=== PATIENT | female | born 1955 | race Caucasian/White ===

== ENCOUNTER 2020-04-12 17:43 | Emergency (ER) | payer MEDICARE, SELFPAY ==
[2020-04-12] VITALS (30 sets, daily range): BP systolic 146–260; BP diastolic 61–130; PULSE 73–101; RESP 16–30; O2SAT 40–100; BMI 22.4
--- NOTE | 2020-04-12 17:53 | DI.RAD.S_ITS ---
PROCEDURE: XR CHEST 1V INDICATIONS: Shortness of breath TECHNIQUE: One view of the chest was acquired. COMPARISON: [facility], , CHEST 2 VIEW, 12/29/2014, 15:39. FINDINGS: Surgical changes and devices: None. Lungs and pleura: Diffuse interstitial pulmonary edema. No pleural effusions or pneumothorax. Mediastinum: Mediastinal contours appear normal. Heart size is normal. Bones and chest wall: No suspicious bony lesions. Overlying soft tissues appear unremarkable. IMPRESSION: Volume overload/diffuse interstitial pulmonary edema. Dictated by: Jacinto Chew M.D. on 04/12/2020 at 18:36 Approved by: Jacinto Chew M.D. on 04/12/2020 at 18:37
--- NOTE | 2020-04-12 18:03 | ED_ITS ---
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 She states she was in her usual state of health with no complaints of worsening dyspnea, chest pain, fevers, cough, edema when she all of a sudden became dramatically more short of breath (she attributes that to increased humidity in the house that no other family members noticed) a sense of severe nausea without vomiting with pain radiating through to her shoulder blades briefly and now resolved. On presentation to the emergency room room air sats were at 76% and currently on 100% non-rebreather her sats are in the upper 90s and she is breathing comfortably and able to speak in full sentences. She is not complaining of chest pain or diaphoresis and notes that her dyspnea has resolved. With her chronic dialysis she does get COVID testing regularly last was 2 weeks ago with no known exposures recently. Related Data Home Medications Medication Instructions Recorded Confirmed [YELLOW MUSTARD] 1 #0 09/22/16 Previous Rx's Medication Instructions Recorded cyclobenzaprine 10 mg PO QDAYP PRN #30 tab 02/19/16 lenalidomide [Revlimid] 5 mg PO QDAY #21 cap 06/11/16 Allergies Allergy/AdvReac Type Severity Reaction Status Date / Time No Known Drug Allergies Allergy Verified 04/12/20 17:52 Review of Systems Review of Systems Narrative: Remainder of review of systems including constitutional, ENT, cardiovascular, respiratory, GI, , musculoskeletal, skin, neurologic and psychiatric systems reviewed and are unremarkable except as noted in HPI. Patient History Medical History DNR (do not resuscitate) End-stage renal disease needing dialysis (10/30/14) MULTIPLE MYELOMA NOT HAVING ACHIEVED REMISSION Squamous cell carcinoma of larynx (06/20/13) Exam Narrative Exam Narrative: General: With 100% non-rebreather in place she is in no acute distress. Able to give a complete and coherent history. Well-nourished well- developed HEENT: Moist mucous membranes, normal sclera with reactive pupils, Neck: + JVD, supple Respiratory: Lungs mild wheezing throughout worse in the lower lung ivy bilaterally with minor bilateral crackles and no rhonchi. Full and symmetrical air movement, no retraction and speaking in full sentences Cardiac: Regular rate and rhythm no murmurs no bruits Abdomen: Soft nontender good bowel tones, no flank pain Skin: Warm and dry, no rashes Neurologic: Grossly neurologically intact with no obvious asymmetries or abnormalities Extremities: No trauma, well perfused, fistulas both arms right currently functional with palpable thrill left without a thrill and not currently being used for dialysis Psych: Cooperative, appropriate insight and affect Initial Vital Signs Initial Vital Signs: Vital Signs Pulse Oximetry 77 L 04/12/20 17:44 Course Orders Ordered: ED Orders 04/12/20 17:50 COVID19 Stat 04/12/20 17:53 XR chest 1V Stat EKG-12 Lead Stat 04/12/20 18:00 Complete Blood Count AUTO DIFF Stat Comprehensive Metabolic Panel Stat D Dimer Stat Lactate (Lactic Acid) Stat Lipase Stat NT-proBNP (BNP-Adult 18+) Stat Partial Thromboplastin Time Stat Procalcitonin Stat Prothrombin Time INR Stat Troponin & CK Cardiac Panel Stat 04/12/20 18:06 Urine Microscopic Stat 04/12/20 18:25 Blood Culture Stat 04/12/20 18:33 Arterial Blood Gas Stat BiPAP Ventilatory Support RT PROTOCOL Discontinued Medications Aspirin (Aspirin 81 Mg Chew Tab) 324 mg PO NOW ONE Stop: 04/12/20 18:23 Last Admin: 04/12/20 18:28 Dose: 324 mg Documented by: MARIELA Nitroglycerin (Nitroglycerin) 50 mg in 250 mls @ 1.5 mls/hr IV TITRATE XOCHITL; Protocol Last Titration: 04/12/20 21:13 Dose: 0 mcg/min, 0 mls/hr Documented by: Titration: 04/12/20 20:54 Dose: 15 mcg/min, 4.5 mls/hr Documented by: Titration: 04/12/20 19:27 Dose: 20 mcg/min, 6 mls/hr Documented by: Titration: 04/12/20 19:23 Dose: 15 mcg/min, 4.5 mls/hr Documented by: Titration: 04/12/20 19:16 Dose: 10 mcg/min, 3 mls/hr Documented by: Admin: 04/12/20 18:28 Dose: 5 mcg/min, 1.5 mls/hr Documented by: MARIELA Vital Signs Vital signs: Vital Signs - 8 hr 04/12/20 17:44 04/12/20 17:52 04/12/20 17:55 Pulse Rate 101 H Respiratory Rate Blood Pressure 198/79 H Pulse Oximetry 77 L 74 L 99 04/12/20 17:58 04/12/20 17:59 04/12/20 18:00 Pulse Rate 93 H 93 H 93 H Respiratory Rate 27 H 20 24 Blood Pressure 227/114 H 260/128 H 246/126 H Pulse Oximetry 100 100 100 04/12/20 18:03 04/12/20 18:12 04/12/20 18:30 Pulse Rate 90 91 H 93 H Respiratory Rate 23 24 24 Blood Pressure 253/126 H 253/130 H Pulse Oximetry 100 100 96 04/12/20 18:35 04/12/20 18:38 04/12/20 19:00 Pulse Rate 95 H 93 H 86 Respiratory Rate 25 H 27 H 26 H Blood Pressure 260/127 H 205/109 H Pulse Oximetry 96 94 100 04/12/20 19:01 04/12/20 19:15 04/12/20 19:20 Pulse Rate 85 84 84 Respiratory Rate 19 23 23 Blood Pressure 227/114 H 225/109 H 219/111 H Pulse Oximetry 100 99 100 04/12/20 19:25 04/12/20 19:30 04/12/20 19:35 Pulse Rate 81 78 77 Respiratory Rate 20 18 17 Blood Pressure 212/109 H 204/96 H 184/88 H Pulse Oximetry 99 100 99 04/12/20 19:40 04/12/20 19:45 04/12/20 19:50 Pulse Rate 76 75 76 Respiratory Rate 17 18 19 Blood Pressure 178/90 H 170/87 H 169/87 H Pulse Oximetry 99 99 99 04/12/20 20:00 04/12/20 20:10 04/12/20 20:20 Pulse Rate 75 87 75 Respiratory Rate 17 23 18 Blood Pressure 181/89 H 204/101 H 197/92 H Pulse Oximetry 99 94 100 04/12/20 20:30 04/12/20 20:40 04/12/20 20:50 Pulse Rate 73 75 74 Respiratory Rate 21 17 18 Blood Pressure 178/91 H 146/61 H 148/79 H Pulse Oximetry 100 99 99 04/12/20 21:00 04/12/20 21:10 Pulse Rate 75 79 Respiratory Rate 20 30 H Blood Pressure 176/80 H 179/75 H Pulse Oximetry 98 95 Medical Decision Making Medical Records Medical records reviewed: Yes I reviewed the patient's medical records. Lab Data Lab results reviewed: Yes I reviewed the patient's lab results. Lab results narrative: Troponin is chronically in the 0.08 range ProBNP elevated as would be expected with dialysis patient No recurrent calcium or potassium issues has noticed with recent [facility] admission March 28 and Result diagrams: 04/12/20 18:00 04/12/20 18:00 Labs: Lab Results 04/12/20 04/12/20 04/12/20 Range/Units 17:50 18:00 18:00 WBC (4.5-11.0) X10^3/uL RBC (4.0-5.2) X10^6/uL Hgb (12.0-16.0) g/dL Hct (36-46) % MCV (80-100) fL MCH (26-34) PG MCHC (30-36) % RDW (11.6-14.8) % Plt Count (150-400) X10^3/uL Neut % (Auto) (50-75) % Lymph % (Auto) (25-40) % [place] % (Auto) (3-14) % Eos % (Auto) (2-4) % Baso % (Auto) (0-2) % Neut # (Auto) (8607-0050) /uL Lymph # (Auto) (3454-4899) /uL Gos[place] # (Auto) (0-900) /uL Eos # (Auto) (0-450) /uL Baso # (Auto) (0-100) /uL PT 10.7 (10.1-12.7) SECONDS INR 0.9 (0.9-1.3) APTT 32 (26.4-36.2) SECONDS D-Dimer (<230) ng/mL Sodium 133 L (137-145) mmol/L Potassium 4.5 (3.4-5.1) mmol/L Chloride 91 L (98-107) mmol/L Carbon Dioxide 32 (22-32) mmol/L BUN 52 H (7-17) mg/dL Creatinine 8.45 H* (0.52-1.04) mg/dL Estimated GFR 4.7 L (>60) mL/min BUN/Creatinine Ratio 6.2 (6-22) Glucose 159 H (80-110) mg/dL Lactate (0.7-2.1) mmol/L Calcium 10.0 (8.4-10.2) mg/dL Total Bilirubin 0.6 (0.2-1.3) mg/dL AST 18 (14-36) IU/L ALT 9 (<35) IU/L Alkaline Phosphatase 53 (38-126) U/L Total Creatine Kinase 46 (30-135) U/L CK-MB (CK-2) TNP CK-MB (CK-2) Rel Index TNP Troponin I 0.089 H (0.01-0.034) ng/mL NT-Pro-B Natriuret Pep 63421 H (<125) pg/mL Total Protein 7.1 (6.3-8.2) g/dL Albumin 4.2 (3.5-5.0) g/dL Globulin 2.9 (1.7-4.1) g/dL Albumin/Globulin Ratio 1.4 (1.0-2.8) Lipase 86 (23-300) U/L Procalcitonin (<0.5) ng/mL Urine RBC (0-5/HPF) Urine WBC (0-5/HPF) Ur Squamous Epith Cells (0-5/HPF) Urine Bacteria (None) Ur Culture Indicated? COVID-19 PCR Negative (Negative) 04/12/20 04/12/20 04/12/20 Range/Units 18:00 18:00 18:00 WBC 13.2 H (4.5-11.0) X10^3/uL RBC 3.70 L (4.0-5.2) X10^6/uL Hgb 11.7 L (12.0-16.0) g/dL Hct 35.8 L (36-46) % MCV 96.9 (80-100) fL MCH 31.7 (26-34) PG MCHC 32.7 (30-36) % RDW 14.9 H (11.6-14.8) % Plt Count 360 (150-400) X10^3/uL Neut % (Auto) 83.8 H (50-75) % Lymph % (Auto) 8.4 L (25-40) % Gosper % (Auto) 4.6 (3-14) % Eos % (Auto) 2.0 (2-4) % Baso % (Auto) 1.2 (0-2) % Neut # (Auto) 82719 H (9422-7362) /uL Lymph # (Auto) 1100 (5456-0378) /uL Gosper # (Auto) 600 (0-900) /uL Eos # (Auto) 300 (0-450) /uL Baso # (Auto) 200 H (0-100) /uL PT (10.1-12.7) SECONDS INR (0.9-1.3) APTT (26.4-36.2) SECONDS D-Dimer (<230) ng/mL Sodium (137-145) mmol/L Potassium (3.4-5.1) mmol/L Chloride (98-107) mmol/L Carbon Dioxide (22-32) mmol/L BUN (7-17) mg/dL Creatinine (0.52-1.04) mg/dL Estimated GFR (>60) mL/min BUN/Creatinine Ratio (6-22) Glucose (80-110) mg/dL Lactate 1.5 (0.7-2.1) mmol/L Calcium (8.4-10.2) mg/dL Total Bilirubin (0.2-1.3) mg/dL AST (14-36) IU/L ALT (<35) IU/L Alkaline Phosphatase (38-126) U/L Total Creatine Kinase (30-135) U/L CK-MB (CK-2) CK-MB (CK-2) Rel Index Troponin I (0.01-0.034) ng/mL NT-Pro-B Natriuret Pep (<125) pg/mL Total Protein (6.3-8.2) g/dL Albumin (3.5-5.0) g/dL Globulin (1.7-4.1) g/dL Albumin/Globulin Ratio (1.0-2.8) Lipase (23-300) U/L Procalcitonin 0.17 (<0.5) ng/mL Urine RBC (0-5/HPF) Urine WBC (0-5/HPF) Ur Squamous Epith Cells (0-5/HPF) Urine Bacteria (None) Ur Culture Indicated? COVID-19 PCR (Negative) 04/12/20 04/12/20 Range/Units 18:00 18:06 WBC (4.5-11.0) X10^3/uL RBC (4.0-5.2) X10^6/uL Hgb (12.0-16.0) g/dL Hct (36-46) % MCV (80-100) fL MCH (26-34) PG MCHC (30-36) % RDW (11.6-14.8) % Plt Count (150-400) X10^3/uL Neut % (Auto) (50-75) % Lymph % (Auto) (25-40) % Gosper % (Auto) (3-14) % Eos % (Auto) (2-4) % Baso % (Auto) (0-2) % Neut # (Auto) (3710-4972) /uL Lymph # (Auto) (8261-7190) /uL Gosper # (Auto) (0-900) /uL Eos # (Auto) (0-450) /uL Baso # (Auto) (0-100) /uL PT (10.1-12.7) SECONDS INR (0.9-1.3) APTT (26.4-36.2) SECONDS D-Dimer 312 H (<230) ng/mL Sodium (137-145) mmol/L Potassium (3.4-5.1) mmol/L Chloride (98-107) mmol/L Carbon Dioxide (22-32) mmol/L BUN (7-17) mg/dL Creatinine (0.52-1.04) mg/dL Estimated GFR (>60) mL/min BUN/Creatinine Ratio (6-22) Glucose (80-110) mg/dL Lactate (0.7-2.1) mmol/L Calcium (8.4-10.2) mg/dL Total Bilirubin (0.2-1.3) mg/dL AST (14-36) IU/L ALT (<35) IU/L Alkaline Phosphatase (38-126) U/L Total Creatine Kinase (30-135) U/L CK-MB (CK-2) CK-MB (CK-2) Rel Index Troponin I (0.01-0.034) ng/mL NT-Pro-B Natriuret Pep (<125) pg/mL Total Protein (6.3-8.2) g/dL Albumin (3.5-5.0) g/dL Globulin (1.7-4.1) g/dL Albumin/Globulin Ratio (1.0-2.8) Lipase (23-300) U/L Procalcitonin (<0.5) ng/mL Urine RBC 0-1/hpf (0-5/HPF) Urine WBC None seen (0-5/HPF) Ur Squamous Epith Cells 0-1 /hpf (0-5/HPF) Urine Bacteria Few (2-10) H (None) Ur Culture Indicated? Cult not indicated COVID-19 PCR (Negative) Urine Dip Bedside Urine Glucose 100 mg/dl Bedside Urine Bilirubin - Negative Bedside Urine Ketone - Negative Urine Specific [place] 1.015 Bedside Urine Occult Blood + Bedside Urine pH 8.5 Bedside Urine Protein ++ 100 Bedside Urine Urobilinogen - Negative Bedside Urine Nitrite - Negative Bedside Urine Leukocytes - Negative Esterase Point of care testing: Urine Dip Bedside Urine Glucose 100 mg/dl Bedside Urine Bilirubin - Negative Bedside Urine Ketone - Negative Urine Specific [place] 1.015 Bedside Urine Occult Blood + Bedside Urine pH 8.5 Bedside Urine Protein ++ 100 Bedside Urine Urobilinogen - Negative Bedside Urine Nitrite - Negative Bedside Urine Leukocytes - Negative Esterase Imaging Data Chest x-ray: Radiologist's Impression: FINDINGS: Surgical changes and devices: None. Lungs and pleura: Diffuse interstitial pulmonary edema. No pleural effusions or pneumothorax. Mediastinum: Mediastinal contours appear normal. Heart size is normal. Bones and chest wall: No suspicious bony lesions. Overlying soft tissues appear unremarkable. IMPRESSION: Volume overload/diffuse interstitial pulmonary edema. Dictated by: Jacinto Chew M.D. on 04/12/2020 at 18:36 ECG Data Attestation: I personally reviewed and interpreted this ECG as follows: Interpretation: Sinus rhythm at a rate of [address] depression in multiple leads Normal axis Concerning for ischemia, not meeting criteria for STEMI MDM Narrative Medical decision making narrative: 64-year-old woman with multiple end-stage diagnoses doing well until an hour prior to admission with severe onset dyspnea, ?indigestion? pain radiating through to her back currently all improved with 100% non-rebreather. COVID test is negative EKG has ST depression diffusely with markedl elevated blood pressure and signs of acute pulmonary edema At this point differential is wide and I suspect flash pulmonary edema with heart failure secondary to hypertensive crisis with diffuse EKG changes not meeting criteria for STEMI. Possibility of pulmonary embolism as well as aortic dissection are both entertained. She is currently pain-free. Absolutely clear on DNI/DNR but would consider both BiPAP or heart catheterization recommended. Completely alert and cognitively appropriate. Daughter at bedside fully stevens pportive. 6:50pm No CCU beds at [facility] 7:[address] Elizabeth, [employer] [facility]. Accepts pt Nitro gtt increased, BP currently 222/112. Pt much more comfortable. Ddimer normal for age correction, no widened mediastinum in no continued chest pain. CT scan of the chest is not indicated at this time Continue discussion with daughter and patient regarding discharge plans, should she be home alone, does she want to continue with dialysis had a with prevent similar symptoms from happening. Reassured them that these were all appropriate questions to be asking and would be better addressed with the hospital service and perhaps even a Palliative care consult while she is hospitalized 736pm BP at 185/88 on 20mcg/min nitro. ALS transfer. BIPAP mask does not fit patient. Will transport with 100% NRB. Safe for transfer at this time Critical Care Time Critical Care Time Critical Care Time: Yes Total Critical Care Time: 32 Attestation: Critical care time is separate from other billable procedures. This critical care time includes consultation with family and other consulting doctors, review of records, and interpretation of data from labs, EKGs and imaging as well as managements of hypertensive crisis with respiratory distress, chest pain and last pulmonary edema Discharge Plan Departure Patient Disposition: [facility] Clinical Impression: Flash pulmonary edema, End-stage renal disease needing dialysis, Hypertensive emergency Prescriptions: No Action cyclobenzaprine 10 MG tablet 10 mg PO QDAYP PRNQty: 30 RF: 0 lenalidomide [Revlimid] 5 MG capsule 5 mg PO QDAY Qty: 21 RF: 0 [YELLOW MUSTARD] 1 Qty: 0 RF: 0 Referrals: Ila Jain PA-C [Primary Care Provider] -
--- NOTE | 2020-04-12 18:10 | PC.NURSE ---
pt arrived to ER in acute respiratory distress. reports it came on in one hour. pt sats on ra 74percent. placed on NC oxygen. titrated up to 6 liter NC. sats only increased to 78 percent. pt is anxious. placed on [address] bhat
[2020-04-12 18:14] LABS: INR 0.9 (0.9-1.3); Prothrombin Time 10.7 SECONDS (10.1-12.7)
[2020-04-12 18:16] LABS: COVID19 -Nasal RAPID Negative (Negative)
[2020-04-12 18:17] LABS: PTT Partial Thromboplastin Tim 32 SECONDS (26.4-36.2)
[2020-04-12 18:19] LABS: Lactate (Lactic Acid) 1.5 mmol/L (0.7-2.1)
[2020-04-12 18:20] LABS: Alanine Aminotransferase 9 IU/L (<35); Albumin 4.2 g/dL (3.5-5.0); Albumin Globulin Ratio 1.4 (1.0-2.8); Alkaline Phosphatase 53 U/L (38-126); Aspartate Aminotransferase 18 IU/L (14-36); Bilirubin Total 0.6 mg/dL (0.2-1.3); Blood Urea Nitrogen 52 mg/dL (7-17); Carbon Dioxide 32 mmol/L (22-32); Chloride 91 mmol/L (98-107); Creatine Kinase 46 U/L (30-135); Globulin 2.9 g/dL (1.7-4.1); Glucose 159 mg/dL (80-110); HEMOLYSIS < 15 (0-50); Lipase 86 U/L (23-300); Potassium 4.5 mmol/L (3.4-5.1); Sodium 133 mmol/L (137-145); Total Protein 7.1 g/dL (6.3-8.2)
[2020-04-12] MEDS: NITROGLYCERIN 50 MG/250 ML INFUS..BTL IV (18:28)
[2020-04-12] MEDS: ASPIRIN 81 MG CHEW TAB 324 MG PO (18:28)
[2020-04-12 18:31] LABS: BUN Creatinine Ratio 6.2 (6-22); Estimated Glomerular Filt Rate 4.7 mL/min (>60)
[2020-04-12 18:32] LABS: Troponin I 0.089 ng/mL (0.01-0.034)
[2020-04-12 18:35] LABS: Add Manual Diff / Slide Review NO; Basophils Absolute Auto 200 /uL (0-100); Basophils Percent Auto 1.2 % (0-2); Eosinophils Absolute Auto 300 /uL (0-450); Hematocrit 35.8 % (36-46); Hemoglobin 11.7 g/dL (12.0-16.0); Lymphocytes Absolute Auto 1100 /uL (1100-4500); Lymphocytes Percent Auto 8.4 % (25-40); Mean Corpuscular HGB Conc 32.7 % (30-36); Mean Corpuscular Hemoglobin 31.7 PG (26-34); Mean Corpuscular Volume 96.9 fL (80-100); Monocytes Absolute Auto 600 /uL (0-900); Monocytes Percent Auto 4.6 % (3-14); Neutrophils Absolute Auto 11100 /uL (1500-7000); Neutrophils Percent Auto 83.8 % (50-75); Platelet Count 360 X10^3/uL (150-400); Red Cell Distribution Width 14.9 % (11.6-14.8); White Blood Cell Count 13.2 X10^3/uL (4.5-11.0)
[2020-04-12 18:38] LABS: D Dimer 312 ng/mL (<230)
[2020-04-12 18:48] LABS: NT-proBNP (BNP-Adult 18+) 45900 pg/mL (<125)
[2020-04-12 19:06] LABS: Procalcitonin 0.17 ng/mL (<0.5)
--- NOTE | 2020-04-12 19:11 | PC.NURSE ---
titrating oxygen off . rt at bedside starting bipap.
[2020-04-12 19:37] LABS: WBC Urine None Seen (0-5/HPF)
[2020-04-12 19:44] LABS: Bacteria Urine Few (2-10); Culture Indicated Urine Cult Not Indicated; RBC Urine 0-1/HPF (0-5/HPF); Squamous Epithelial Cell Urine 0-1 /HPF (0-5/HPF)
== END 2020-04-12 21:23 | disposition short-term general hospital (02) ==
PROVIDERS: Emergency Medicine; Emergency Provider Emergency Medicine; Family Provider Physician Assistant; PCP Physician Assistant
DX: J81.0 Acute pulmonary edema (principal); I16.1 Hypertensive emergency; N18.6 End stage renal disease; Z99.2 Dependence on renal dialysis; R07.9 Chest pain, unspecified; R11.0 Nausea
CPT/HCPCS: 36415; 71045; 80053; 81003; 81015; 82550; 83605; 83690; 83880; 84145; 84484; 85025; 85379; 85610; 85730; 87040; 87635; 93005; 93010; 94660; 96365; 96366; 99284; 99291